=== PATIENT | female | born 1990 | race Caucasian/White ===

== ENCOUNTER → 2019-11-07 15:54 | Outpatient (CLI) | payer OTHER, MEDICAID, SELFPAY ==
[2019-11-08 19:40] LABS: Strep Grp B PCR POS for Grp B Strep
== END ==
PROVIDERS: Visit Provider Specialist
DX: Z34.83 Encounter for supervision of other normal pregnancy, third trimester (principal)
CPT/HCPCS: 87186; 87653

== ENCOUNTER → 2019-11-21 10:53 | Outpatient (CLI) | payer OTHER, MEDICAID, SELFPAY ==
[2019-11-22 18:42] LABS: COVID19 Sendout Not Detected (Not Detect)
== END ==
PROVIDERS: Visit Provider Physician Assistant
DX: Z11.59 Encounter for screening for other viral diseases (principal)
CPT/HCPCS: 87635

== ENCOUNTER 2019-11-24 06:31 | Inpatient (IN) | payer OTHER, MEDICAID, SELFPAY ==
[2019-11-24 06:50] LABS: Add Manual Diff / Slide Review NO; Basophils Absolute Auto 0 /uL (0-100); Basophils Percent Auto 0.3 % (0-2); Eosinophils Absolute Auto 100 /uL (0-450); Eosinophils Percent Auto 0.7 % (2-4); Hematocrit 37.3 % (36-46); Hemoglobin 13.2 g/dL (12.0-16.0); Lymphocytes Absolute Auto 2500 /uL (1100-4500); Lymphocytes Percent Auto 31.3 % (25-40); Mean Corpuscular HGB Conc 35.5 % (30-36); Mean Corpuscular Hemoglobin 30.9 PG (26-34); Monocytes Absolute Auto 700 /uL (0-900); Monocytes Percent Auto 8.6 % (3-14); Neutrophils Absolute Auto 4700 /uL (1500-7000); Neutrophils Percent Auto 59.1 % (50-75); Platelet Count 224 X10^3/uL (150-400); Red Blood Cell Count 4.29 X10^6/uL (4.0-5.2); Red Cell Distribution Width 12.7 % (11.6-14.8); White Blood Cell Count 7.9 X10^3/uL (4.5-11.0)
[2019-11-24 07:28] VITALS: BP 115/70
--- NOTE | 2019-11-24 07:28 | PM.PREOP ---
Pre-operative Note COVID-19 COVID-19 status: Negative Result date/Date tested (Pos, Neg/Pending): 11/21/19 Interval Note History & Physical reviewed/Exam performed by Physician: Yes Changes to H&P: No
[2019-11-24] MEDS: CLINDAMYCIN 900 MG/50 ML PIGGYBACK 50 MG IV (07:33)
[2019-11-24] MEDS: GENTAMICIN 350 MG in SODIUM CHLORIDE 0.9% 100 ML 107.5 ML IV (07:53)
--- NOTE | 2019-11-24 08:01 | SUR.OPER ---
Supine on Padded OR bed, head on pillow, safety belt at thigh, arms secured on padded arm boards at <90 degrees abduction. Bump under right buttock. Legs uncrossed with pillow under knees, gel pad to heels, tape over blanket to lower legs.
--- NOTE | 2019-11-24 08:08 | SUR.OPER ---
live male at 0805
[2019-11-24] MEDS: LACTATED RINGERS 1,000 ML 100 ML IV ×3 (08:13→20:16)
[2019-11-24 08:39] VITALS: BP 110/76; PULSE 64; RESP 15; TEMP 36.3; O2SAT 100
[2019-11-24 08:45] VITALS: BP 107/65; PULSE 58; RESP 11; TEMP 36.3; O2SAT 100
--- NOTE | 2019-11-24 08:49 | PM.OP.1 ---
Operative Date/Time/Diagnoses Date of procedure: 11/24/19 Time of procedure: 08:49 Pre-op diagnosis: 39 week gestation with prior section for repeat Post-op diagnosis: same Procedure & Clinicians Procedure: Repeat low-transverse section Same procedure as scheduled: Yes Indications: Term with prior Surgeon: Susan Kramer Process Project Engineer: Holli Tristan Anesthesia Type: Spinal Operative Notes Findings: Normal tubes, ovaries, and uterus. Viable male infant weighing 8 lb 6 oz Closure Type: primary Specimen(s): none sent Applied: catheter (Love) Estimated Blood Loss (mL): 300 Blood products transfused: none Procedure in detail: The patient was brought to the operating room where she underwent a spinal for anesthesia. She was placed in a supine position with a left lateral tilt. A Love catheter was placed. Pulsatile stockings were placed and functional throughout the case. 900 mg of clindamycin and 350 mg gentamicin were given IV prior to the incision. Warming was in place. The patient was prepped and draped in usual sterile fashion. A low transverse incision was made with a scalpel through the prior incision and the incision was carried down to the fascial layer which was incised transversely with scissors. The midline attachments are superiorly and inferiorly. Some bleeding was controlled Bovie. The rectus muscles were in the midline and the peritoneal incision was made with no damage to internal structures. The peritoneum was incised and superiorly and inferiorly. Bladder blade was placed and a bladder flap was developed and the bladder held away from the lower uterine segment. An incision was made in the uterus with the scalpel and the incision was extended with stretching. The head was elevated out of the abdomen with assistance from the vacuum and with fundal pressure the baby was delivered. The infant was bulb suctioned for clear fluid and handed off to the warmer. Cord blood was collected. The placenta delivered spontaneously with traction. The uterus was cleaned with clean laps. The uterine incision was closed in 2 layers of 0 chromic suture the first a running locking layer the second an imbricating layer. The bladder peritoneum was repaired with 2-0 Vicryl suture. The gutters were cleaned of any remaining fluids and ovaries and tubes were observed to be normal. Adequate hemostasis was noted. The perineum was closed with 2-0 Vicryl suture. The fascia layer was closed with 0 Vicryl suture with 2 stitches. The incision was irrigated and adequate hemostasis noted. The incision was closed with interrupted 3-0 Vicryl sutures and then a subcuticular stitch of 4-0 Vicryl suture. Steri-Strips were placed. The uterus was massaged to remove any clots. The patient went to recovery room in good condition. Counts of instruments and sponges were correct. Complications: none Post-operative Condition: stable Disposition: other ( Center) Plan for aftercare: Routine post section
[2019-11-24 08:50] VITALS: BP 104/66; PULSE 56; RESP 13; TEMP 35.6; O2SAT 100
[2019-11-24 08:55] VITALS: BP 111/69; PULSE 59; RESP 19; TEMP 36.2; O2SAT 100
[2019-11-24] MEDS: KETOROLAC 30 MG/ML VIAL IV ×2 (14:07→20:15)
[2019-11-25] MEDS: KETOROLAC 30 MG/ML VIAL IV (04:04)
--- NOTE | 2019-11-25 08:59 | PM.OBDS.1 ---
Discharge Providers Provider Date of admission: 11/24/19 06:31 Discharge Date: 11/25/19 Consults: 11/24/19 10:03 Consult to Collating Machine Operator Routine Comment: Discharge provider: Susan Kramer MD Summary Hospital Course Date Patient Seen: 11/25/19 Time Patient Seen: 09:00 Procedures: Repeat low-transverse section Hospital Course: Patient was admitted for repeat low-transverse section. She has been able to urinate after her Love catheter removed. She denies any nausea. She is ambulatory. She is passing gas. She denies headaches, scotomata, epigastric pain. Peripartum Data Infant Delivery Method: Section (Repeat) Procedures: Repeat low-transverse section complications: none [place] 1: Gender: Male Disposition of : home Discharge Diagnosis (1) Status post primary low transverse section: Status: Acute Status at Discharge Cognitive/behavioral status at discharge: oriented Functional status at discharge: independent ambulation Overall status at discharge: patient is progressing back to baseline Time Spent with Patient Time attestation: Total time spent providing and/or coordinating discharge services: Time spent: Less than 30 minutes Objective Labs Result Diagrams: 11/24/19 06:15 Exam Vital Signs (past 8 hours): Blood pressure 102/61, pulse 64, temperature 98.1? Oxygen Delivery Method Room Air Narrative Exam Narrative: Abdomen was soft, nontender. Uterus is firm, U -1, nontender. Dressing is clean, dry, intact. Mild lochia. Extremities without edema and nontender. Patient's blood type is A-negative baby is O negative so no RhoGAM indicated. She is rubella immune. She received Tdap in the 3rd trimester. Discharge Plan Discharge Plan Patient Disposition: Home Discharge orders & Medications Prescriptions: New oxycodone-acetaminophen 5-325 mg Tablet 2 tab PO Q4HR PRN (Reason: Pain, Severe (7-10)) Qty: 30 RF: 0 ibuprofen 600 mg Tablet 600 mg PO Q6HR PRN (Reason: Fever/Mild Pain (1-3)) Qty: 30 RF: 0 docusate sodium 250 mg Capsule 250 mg PO DAILY Qty: 2 RF: 0 Continued prenat.vits,madhav,dki-emoj-ruoap Tablet 1 tab PO DAILY RF: 0 Follow up/Referrals: Susan Kramer MD [Physician] - 1 Week (Aquacel removal) Diet/Activity/Treatments Diet: Regular Activity: Nothing in vagina or lifting over 20 lb for 6 weeks Skin/Wound/Dressing Care Report to your healthcare provider any signs of infection, such as:: chills, fever, increased pain and unusual redness Dressing: Leave dressing on until 1 week postop appointment Visit Report/Discharge Packet Instructions: DI for Stand Alone Forms: Discharge: Care
[2019-11-25] MEDS: DOCUSATE 250 MG CAPSULE PO (09:47)
[2019-11-25] MEDS: IBUPROFEN 600 MG TABLET PO (09:47)
[2019-11-25 10:33] VITALS: BP 102/61; PULSE 64; RESP 19; TEMP 37.7
== END 2019-11-25 13:36 | disposition home or self-care (01) | DRG 540 ==
PROVIDERS: Admitting Provider Specialist; Referring Provider Specialist; Visit Provider Specialist
PROC: 10D00Z1 Extraction of Products of Conception, Low, Open Approach (ICD-10-PCS; CPT 59514; principal; 2019-11-24 07:45)
DX: O34.211 Maternal care for low transverse scar from previous cesarean delivery (principal); Z3A.39 39 weeks gestation of pregnancy; Z37.0 Single live birth; K21.9 Gastro-esophageal reflux disease without esophagitis; O99.824 Streptococcus B carrier state complicating childbirth
CPT/HCPCS: 59050; 59514; 85025; 86850; 86870; 86900; 86901; J1885; J2274; J2405; J2590